=== PATIENT | female | born 1995 | race Two or more races ===

== ENCOUNTER 2022-04-08 09:54 | Emergency (ER) | payer MEDICAID, OTHER ==
[~2022-04-08] VITALS: Ht 160 cm; Wt 62.8 kg
[2022-04-08 11:06] LABS: Urine Bacteria NONE SEEN /hpf (None Seen); Urine Blood 3+ /uL (Negative); Urine Budding Yeast LOADED /hpf (None Seen); Urine Mucus FEW (None Seen); Urine WBC 2077 /hpf (0 - 5); Urine WBC Clumps PRESENT /hpf (None Seen)
[2022-04-08 12:36] VITALS: BP 127/81
[2022-04-08] MEDS ORDERED: cefTRIAXone SOD 1,000 MG VL IM ONE (12:45)
[2022-04-08] MEDS ORDERED: ONDANSETRON ODT 4 MG TAB PO ONE (12:45)
[2022-04-08] MEDS ORDERED: ACET1CAP14 PO (12:47)
[2022-04-08] MEDS ORDERED: ONDA-144 PO (12:47)
[2022-04-08] MEDS ORDERED: CEPH-510 PO (12:47)
[2022-04-08] MEDS ORDERED: PHEN-1045 PO (12:50)
== END 2022-04-08 12:55 | disposition home or self-care (01) ==
LOC: ER 09:54
DX: N12 Tubulo-interstitial nephritis, not specified as acute or chronic (principal)
CPT/HCPCS: 81001; 96372; 99283; J0696; Q0162